=== PATIENT | female | born 1945 | race Hispanic/Latino ===

== ENCOUNTER 2018-02-09 22:53 | Emergency (ER) | payer MEDICARE ==
[2018-02-10 00:48] LABS: BASOPHILS % (AUTO) 0.7 % (0.0-5.0); EOSINOPHILS % (AUTO) 2.2 % (0.0-8.0); HEMATOCRIT 27.8 % (36-48); LYMPHOCYTES % (AUTO) 13.7 % (21.0-51.0); MEAN CORPUSCULAR HEMOGLOBIN 32.4 pg (27.0-33.0); MEAN CORPUSCULAR HGB CONC 34.1 g/dL (32.0-36.0); NEUTROPHILS % (AUTO) 69.4 % (40.0-77.0); NUCLEATED RED BLOOD CELLS 0.1 % (0.0-0.19); PLATELET COUNT (AUTO) 163 K/uL (130-400); RED BLOOD CELL COUNT(AUTO) 2.92 MIL/uL (4.00-5.50); RED CELL DISTRIBUTION WIDTH 17.9 % (11.0-15.5)
[2018-02-10 00:54] LABS: CREATININE 0.6 mg/dL (0.5-1.5); POTASSIUM 3.7 mmol/L (3.5-5.1)
[2018-02-10 00:58] LABS: ALBUMIN 2.8 g/dL (3.5-5.0); BILIRUBIN,TOTAL 0.3 mg/dL (0.2-1.0); TOTAL PROTEIN, SERUM 6.5 g/dL (6.0-8.3)
== END 2018-02-10 02:09 | disposition home or self-care (01) ==
LOC: EDH 22:53
DX: I82.401 Acute embolism and thrombosis of unspecified deep veins of right lower extremity (principal); Z85.53 Personal history of malignant neoplasm of renal pelvis
CPT/HCPCS: 36415; 80053; 82550; 85025